=== PATIENT | female | born 1980 | race American Indian/Alaskan Native ===

== ENCOUNTER 2019-10-28 00:27 | Outpatient (CLI) | payer BC, MEDICAID, SELFPAY | END 2019-10-28 00:28 | disposition home or self-care (01) | LOC: ANHCOVIDDT 00:27 | PROVIDERS: Visit Provider Obstetrics & Gynecology | DX: Z01.818 Encounter for other preprocedural examination (principal); Z11.59 Encounter for screening for other viral diseases | CPT/HCPCS: 87635; C9803; U0003 ==

== ENCOUNTER 2019-10-28 09:00 | Outpatient (CLI) | payer OTHER, MEDICAID, SELFPAY | END 2019-10-28 09:01 | disposition home or self-care (01) | PROVIDERS: Visit Provider Obstetrics & Gynecology | DX: Z01.818 Encounter for other preprocedural examination (principal); N94.6 Dysmenorrhea, unspecified | CPT/HCPCS: 36415; 86850; 86900; 86901; 87635; C9803; U0003 ==

== ENCOUNTER 2019-11-01 15:17 | Observation (INO) | payer BC, MEDICAID, SELFPAY ==
[2019-10-27 07:46] VITALS: BMI 28.1
[2019-10-31] VITALS (12 sets, daily range): BP systolic 107–138; BP diastolic 63–96; PULSE 52–93; RESP 10–20; TEMP 36.1–37.8; O2SAT 95–100
[2019-10-31] MEDS: LACTATED RINGERS 1,000 ML 30 ML IV CONT ×3 (06:45→10:20)
--- NOTE | 2019-10-31 06:46 | P.PNAN_ITS ---
Anes - Initial Pre Proc Eval Procedure: Operation Date: 10/31/19 07:30 Proposed Procedures p Total Laparoscopic Hysterectomy, Bilateral Salpingo-Oophorectomy - Eve Davidson MD Date/Time: 10/31/19 06:46 Surgeon: Eve Davidson MD Pre Op Diagnosis: Dysmenorrhea/ Leiomyoma Of The Uterus Patient Data Age: 39 Gender: F Height: 5 ft 1 in Weight: 67.59 kg Allergies Allergy/AdvReac Type Severity Reaction Status Date / Time amoxicillin Allergy THROAT Verified 10/27/19 07:47 SWELLING Sulfa (Sulfonamide Allergy TONGUE Verified 10/27/19 07:47 Antibiotics) SWELLING Home Medications Medication Instructions Recorded Confirmed Type No Home Medications 10/27/19 10/27/19 History Patient hx anesthesia problems: none Family hx anesthesia problems: none [facility] Past Medical History Medical History Anxiety Overweight Smoker Surgical History Surgical History (Updated 10/31/19 @ 06:50 by Terrence Harrington MD) History of ankle surgery History of section Anes - Eval Final PreProcedure Day of Procedure 10/31/19 06:46 Patient weight: overweight Heart: regular rate and rhythm Lungs: clear to auscultation Airway: Mallampati scale class II and special considerations poor dentition Neurological: alert and oriented Last oral intake: >/= 8 hours ASA classification: II Emergent: no Anesthetic plan: proceed Anesthesia type and monitoring: general ETT and standard monitoring Informed Consent: The patient's anesthetic plan and its attendant risks and benefits were discussed with the patient/family/POA. Questions were solicited and answers provided to the satisfaction of the patient/family/POA.
--- NOTE | 2019-10-31 07:22 | WPDHPUPDATE1 ---
History and Physical Update Update Date/Time: 10/31/19 07:22 History and Physical has been reviewed, including an updated exam of the patient. There are NO changes in the patient's condition. Risks, benefits, and alternatives have been discussed and questions answered. Patient agrees to proceed with procedure.
[2019-10-31] MEDS: IBUPROFEN IV 800 MG/200 ML 800 MG/200 ML BAG 400 MG IVPB (07:25)
[2019-10-31] MEDS: CLINDAMYCIN 900 MG/NS 50 ML 900 MG/50 ML PIGGYBACK 50 MG IVPB (08:29)
--- NOTE | 2019-10-31 09:50 | P.OP_ITS ---
Procedure Note - Detailed Date of procedure: 10/31/19 Pre-op diagnosis: Dysmenorrhea/ Leiomyoma Of The Uterus Severe menorrhagia, dysmenorrhea Post-op diagnosis: same Procedure performed: Total laparoscopic hysterectomy bilateral salpingo- oophorectomy Description of procedure: The patient was taken to the operating room. She was prepped and draped in the dorsal lithotomy position. A speculum was placed in the vagina. The cervix was grasped with a tenaculum. Stay sutures were placed at 3 and 9:00 a.m. of 0 Vicryl. The stay sutures were brought through the Mary up. The ALYSSA manipulator was placed in the vagina with a fixed Mary cup. The cup was then pushed up around the cervix. The sutures were tied to the handle of the ALYSSA manipulator. A 5 mm incision was made on the abdominal skin of the left upper quadrant using a scalpel. A 5 mm trocar was inserted into the intra-abdominal cavity under direct visualization the scope. Pneumoperitoneum was achieved. An 11 mm incision was made in the left lower quadrant of the abdomen with a scalpel. A 11 mm trocar was inserted into the intra-abdominal cavity under direct visualization the scope. A 5 mm periumbilical incision was made. A 5 mm scope was placed into the intra-abdominal cavity under direct visualization of the scope. The ureters were identified. The ureters were observed to be away from the infundibulopelvic ligaments. These infundibulopelvic ligaments were isolated, cauterized, and transected with LigaSure cautery. This was done in a bilateral fashion. The para ovarian tissue along the pelvic sidewall was cauterized and transected in a bilateral fashion using the ligature cautery. The round ligaments were cauterized and transected bilaterally with LigaSure cautery. The broad ligaments were cauterized and transected along the lateral aspects of the uterus down the level of the uterine arteries. A bladder flap was created using sharp and blunt dissection. The ureters were dissected out bilaterally down to the level of the uterine arteries. The could be visualized from the pelvic brim down the uterine arteries. Staying very close to the cervix the parametrium was cauterized transected in a stepwise fashion down to the level of the Mary cup. The Bladder flap was moved distally over the Mary cup using sharp and blunt dissection. The cup was visualized and a complete 360 degree papillary around the cervix. An incision was made with unipolar cautery down under the Mary cup creating a colpotomy incision all the way around the cervix. The uterus tubes and ovaries were taken out through the vagina. A pneumo occluder was placed in the vagina. The vagina was closed with 0 V lock suture in a running fashion. The ureters were identified again and found to be intact elevated and the uterine arteries. The pelvis was irrigated with a copious amount of antibiotic irrigation. The pneumoperitoneum was reduced. The trocars were removed. The skin was closed subcuticular 4 Monocryl covered with Dermabond. The pneumo occluder was removed from the vagina. The vagina was irrigated with Betadine. The patient tolerated the procedure well. She was taken to the recovery room in stable condition. Sponge lap and needle counts were correct x2. Anesthesia: GETA Surgeon: Eve Davidson MD Estimated blood loss (mL): 100 Drains: No Packing: No Pathology: yes Complications: No immediate complications Condition: stable Disposition: PACU Findings: Grossly normal-appearing uterus tubes and ovaries.
[2019-10-31] MEDS: KETOROLAC 30 MG/ML VIAL (*BKC) IV PUSH (11:12)
[2019-10-31] MEDS: IBUPROFEN 600 MG TABLET PO (17:06)
[2019-10-31] MEDS: SIMETHICONE 80 MG TAB.CHEW PO (20:58)
--- NOTE | ~2019-11-01 | CT_ITS ---
EXAMINATION: CT abdomen pelvis wo con DATE: 11/01/2019 12:30 INDICATION: Severe abdominal pain and nausea, vomiting after surgery. Total hysterectomy. TECHNIQUE: Computed tomography (CT) of the abdomen and pelvis was performed without intravenous contr ast. Automated exposure control and iterative reconstruction technique were employed. Exam dose: 470 .20 mGy-cm total exam DLP. COMPARISON: None. FINDINGS: The lung bases are clear of infiltrate or consolidation. Normal heart size. No pericardial or pleural effusion. There is intraperitoneal free air as well as some subcutaneous emphysema of the anterior abdominal wa ll, likely postoperative. The liver, gallbladder, bile ducts, spleen, pancreas, pancreatic duct, and adrenal glands and kidneys are unremarkable on this limited noncontrast examination, with the exception of approximately 1.3 cm right renal probable cyst. This is a limited noncontrast examination. Normal caliber of the abdominal aorta. No intraperitoneal or retroperitoneal or pelvic mass lesion or adenopathy or ascites. The urinary bladder appears unremarkable. Status post hysterectomy. Normal appendix. Diverticulosis of the colon; no CT evidence of diverticulitis. There is a prominent of fecal material in the colon. IMPRESSION: Probable postoperative pneumoperitoneum Probable mild postoperative adynamic ileus Diverticulosis of the colon; no CT evidence of diverticulitis; prominent amount of fecal material in the colon Reviewed, dictated and finalized at [facility]. Reviewed, dictated and finalized at [facility].
[2019-11-01] MEDS: IBUPROFEN 600 MG TABLET PO ×3 (00:17→19:34)
[2019-11-01 00:30] VITALS: BP 112/69; PULSE 77; RESP 18; TEMP 37.5
[2019-11-01] MEDS: SIMETHICONE 80 MG TAB.CHEW PO ×4 (04:24→19:34)
[2019-11-01 04:25] VITALS: BP 128/82; PULSE 73; RESP 17; TEMP 37.2
[2019-11-01] MEDS: ONDANSETRON HCL ODT 4 MG TABLET (08:00)
[2019-11-01 08:50] VITALS: BP 135/90; PULSE 68; RESP 16; TEMP 37.2; O2SAT 100
--- NOTE | 2019-11-01 09:02 | WPDANESPN ---
Anes - Prog Note Post-Op Date/Time: 11/01/19 09:02 Cardiovascular status: normal Respiratory status: normal Airway patency: baseline Mental status: baseline Post-Op hydration status: normal Vital Signs: Last Vital Signs Temp 37.2 C 11/01/19 04:25 Pulse 73 11/01/19 04:25 Resp 17 11/01/19 04:25 BP 128/82 11/01/19 04:25 Pulse Ox 100 10/31/19 14:00 I/O: Intake & Output 10/31/19 11/01/19 11/01/19 23:59 07:59 15:59 Intake Total 1000 Output Total 1500 Balance -500 Post-procedural complaints: none Patient Feedback: Patient satisfied with anesthetic care.
[2019-11-01] MEDS: TRAMADOL HCL 50 MG TABLET (09:28)
[2019-11-01 09:59] LABS: Hematocrit 34.7 % (37.0-47.0); Hemoglobin 11.5 g/dL (12.0-15.0); Mean Corpuscular HGB Conc 33.1 g/dl (32-36); Mean Corpuscular Hemoglobin 30.4 pg (26-34); Mean Corpuscular Volume 91.8 fl (80-100); Mean Platelet Volume 9.7 fl (7.4-10.4); Platelet Count Result 321 k/mm3 (150-375); Red Blood Count 3.78 M/mm3 (4.2-5.4); Red Cell Distribution Width 15.4 % (11.5-14.5); White Blood Count 13.5 K/mm3 (4.5-10.0)
[2019-11-01] MEDS: MORPHINE SULFATE 10 MG/ML AMP (12:11)
[2019-11-01 12:30] VITALS: BP 117/71; PULSE 72; RESP 14; TEMP 36.9
--- NOTE | 2019-11-01 14:16 | PM.GYNPNOP ---
LENS GENERATOR - A/P Postoperative Procedures: Procedures Operation Date: 10/31/19 07:30 Actual Procedures Side Surgeon p Total Laparoscopic Hysterectomy, Bilateral Salpingo-Oophorectomy Eve Davidson MD Postoperative day: 1 Postoperative status: post-op ileus, marginal pain control and other (nausea and vomiting - poor pain control - normal post op CT. - possible ileus, abd. mucle pain from vomiting) Postoperative plan: see orders Time Spent With Patient Time: Total time spent is greater than 50% in coordination of care (as documented) at patient's floor/unit and/or counseling patient: Time with patient: 15 - 25 minutes LENS GENERATOR- PN:Subj Post-Op Subjective Date/time seen: 11/01/19 14:16 The patient reports multiple episodes of nausea and vomiting. She reports abdominal pain in the right upper quadrant. She denies fever or chills. Subjective: patient is tolerating oral intake and pain not well controlled Exam Const: General: cooperative, healthy appearing, comfortable and no acute distress Resp: Auscultation: no crackles, no rales, no rhonchi and no wheezes Cardio: Rhythm: regular rhythm Heart sounds: no click and no murmurs GI: Inspection: non-distended Auscultation: normal bowel sounds Other: Incisions - CDI Extrem: General: normal to inspection, no pedal edema and no calf tenderness LENS GENERATOR - PN: Obj Data Vital Signs Vital Signs: Vital Signs - 24 hr 10/31/19 19:24 11/01/19 00:30 11/01/19 04:25 Temperature 100.1 F H 99.5 F 99.0 F Pulse Rate 70 77 73 Respiratory Rate 18 18 17 Blood Pressure 119/83 112/69 128/82 Pulse Oximetry 11/01/19 08:50 Temperature 98.9 F Pulse Rate 68 Respiratory Rate 16 Blood Pressure 135/90 Pulse Oximetry 100 Intake/Output Intake/Output: Intake & Output 10/29/19 10/30/19 10/31/19 11/01/19 23:59 23:59 23:59 23:59 Intake Total 2607 1000 Output Total 450 1500 Balance 2157 -500 Meds/Results Medications: Active Medications Generic Name Dose Route Start Last Admin Trade Name Freq PRN Reason Stop Dose Admin Hydrocodone Bitart/Acetaminophen 1 tab 10/31/19 10:48 [place] 5-325 Mg PO Q3H PRN Pain Rated 5 or Less Hydrocodone Bitart/Acetaminophen 1 tab 10/31/19 10:48 11/01/19 04:24 [place] 10-325 Mg PO 1 tab Q3H PRN Administration Pain Rated 6 or Greater Ibuprofen 600 mg 10/31/19 10:48 11/01/19 08:28 Motrin PO 600 mg Q6H PRN Administration Cramping Ketorolac Tromethamine 30 mg 10/31/19 10:48 10/31/19 11:12 Toradol Inj IV PUSH 11/05/19 10:49 30 mg Q6H PRN Administration Pain Rated 4-6 Naloxone HCl 0.1 mg 10/31/19 10:48 Narcan IV PUSH Q2M PRN Respiratory rate less than 10 Ondansetron HCl 4 mg 11/01/19 08:00 Zofran Odt PO Q6H PRN Nausea And Vomiting Promethazine HCl 25 mg 11/01/19 12:04 Phenergan Tab PO Q4H PRN Nausea And Vomiting Simethicone 80 mg 10/31/19 14:26 11/01/19 08:27 Mylicon PO 80 mg QID PRN Administration Gas Discomfort Tramadol HCl 50 mg 11/01/19 09:30 Ultram PO Q4H PRN Abdominal Cramping Radiology Results: ITS Impressions Abdomen/Pelvis CT 11/01/19 12:33 IMPRESSION: Probable postoperative pneumoperitoneum Probable mild postoperative adynamic ileus Diverticulosis of the colon; no CT evidence of diverticulitis; prominent amount of fecal material in the colon Labs CBC & Chem 7: 11/01/19 09:49 Labs: Laboratory Results - last 24 hr 11/01/19 09:49 WBC 13.5 H RBC 3.78 L Hgb 11.5 L Hct 34.7 L MCV 91.8 MCH 30.4 MCHC 33.1 RDW 15.4 H Plt Count 321 MPV 9.7
[2019-11-01] MEDS: DOCUSATE SODIUM 100 MG CAPSULE PO (15:47)
[2019-11-01] MEDS: TRAMADOL HCL 50 MG TABLET PO ×2 (15:47→21:28)
--- NOTE | 2019-11-01 17:11 | PC.NURSE ---
0915 Dr Davidson in room, report given of nausea/vomiting, pain level in upper right quadrant. Orders received. 1045 Pt wishes to try a shower for relaxing muscles. Pt continues to have nausea and vomiting. 1200 Dr. Davidson notified of continuing nausea/vomiting. Morphine given IM. Zofran ODT repeated 1215 Taken to radiology for CT via wheelchair [address], states pain is completely gone and is no longer nauseous. 1300 Napping. 1547 Given Ultram for pain level of three, relaxed appearance. States she's hungry.
[2019-11-01 19:38] VITALS: BP 131/70; PULSE 65; RESP 17; TEMP 36.7
[2019-11-02] MEDS: IBUPROFEN 600 MG TABLET PO ×2 (03:54→10:46)
[2019-11-02] MEDS: ONDANSETRON HCL ODT 4 MG TABLET PO (07:11)
--- NOTE | 2019-11-02 07:59 | PM.GYNPNOP ---
OPERATIONS SUPERVISOR 2ND SHIFT - A/P Postoperative Procedures: Procedures Operation Date: 10/31/19 07:30 Actual Procedures Side Surgeon p Total Laparoscopic Hysterectomy, Bilateral Salpingo-Oophorectomy Eve Davidson MD Patient has a historically unique response to pain. Reports previous vomiting with abdominal pain. Vomiting improved. To trial Xanax. If improved to D/C. Patient has significant anxiety at baseline. Normal CT yesterday. Postoperative day: 2 Postoperative status: doing well Postoperative plan: see orders Time Spent With Patient Time: Total time spent is greater than 50% in coordination of care (as documented) at patient's floor/unit and/or counseling patient: Time with patient: 15 - 25 minutes OPERATIONS SUPERVISOR 2ND SHIFT- PN:Subj Post-Op Subjective Date/time seen: 11/02/19 07:59 Subjective: patient reports feeling better, patient has no complaints and pain is well controlled Exam Const: General: healthy appearing, comfortable and no acute distress Resp: Auscultation: clear to auscultation bilaterally, no rales, no rhonchi and no wheezes Cardio: Rate: regular rate Heart sounds: no click, no murmurs and no rubs GI: Inspection: non-distended Auscultation: normal bowel sounds Extrem: General: normal to inspection, no pedal edema and no calf tenderness OPERATIONS SUPERVISOR 2ND SHIFT - PN: Obj Data Vital Signs Vital Signs: Vital Signs - 24 hr 11/01/19 08:50 11/01/19 12:30 11/01/19 19:38 Temperature 98.9 F 98.4 F 98.1 F Pulse Rate 68 72 65 Respiratory Rate 16 14 17 Blood Pressure 135/90 117/71 131/70 Pulse Oximetry 100 Intake/Output Intake/Output: Intake & Output 10/30/19 10/31/19 11/01/19 11/02/19 23:59 23:59 23:59 23:59 Intake Total 2607 1000 Output Total 450 1500 Balance 2157 -500 Meds/Results Medications: Active Medications Generic Name Dose Route Start Last Admin Trade Name Freq PRN Reason Stop Dose Admin Hydrocodone Bitart/Acetaminophen 1 tab 10/31/19 10:48 [place] 5-325 Mg PO Q3H PRN Pain Rated 5 or Less Hydrocodone Bitart/Acetaminophen 1 tab 10/31/19 10:48 11/01/19 04:24 [place] 10-325 Mg PO 1 tab Q3H PRN Administration Pain Rated 6 or Greater Alprazolam 0.5 mg 11/02/19 07:49 Xanax PO TID PRN Anxiety Docusate Sodium 100 mg 11/01/19 21:00 11/01/19 15:47 Colace Capsule PO 100 mg Q12HR CHEPE Administration Ibuprofen 600 mg 10/31/19 10:48 11/02/19 03:54 Motrin PO 600 mg Q6H PRN Administration Cramping Ketorolac Tromethamine 30 mg 10/31/19 10:48 10/31/19 11:12 Toradol Inj IV PUSH 11/05/19 10:49 30 mg Q6H PRN Administration Pain Rated 4-6 Naloxone HCl 0.1 mg 10/31/19 10:48 Narcan IV PUSH Q2M PRN Respiratory rate less than 10 Ondansetron HCl 4 mg 11/01/19 08:00 11/02/19 07:11 Zofran Odt PO 4 mg Q6H PRN Administration Nausea And Vomiting Promethazine HCl 25 mg 11/01/19 12:04 Phenergan Tab PO Q4H PRN Nausea And Vomiting Simethicone 80 mg 11/01/19 18:45 11/01/19 19:34 Mylicon PO 80 mg Q2HR PRN Administration Gas Discomfort Tramadol HCl 50 mg 11/01/19 09:30 11/01/19 21:28 Ultram PO 50 mg Q4H PRN Administration Abdominal Cramping Radiology Results: ITS Impressions Abdomen/Pelvis CT 11/01/19 12:33 IMPRESSION: Probable postoperative pneumoperitoneum Probable mild postoperative adynamic ileus Diverticulosis of the colon; no CT evidence of diverticulitis; prominent amount of fecal material in the colon Labs CBC & Chem 7: 11/01/19 09:49 Labs: Laboratory Results - last 24 hr 11/01/19 09:49 WBC 13.5 H RBC 3.78 L Hgb 11.5 L Hct 34.7 L MCV 91.8 MCH 30.4 MCHC 33.1 RDW 15.4 H Plt Count 321 MPV 9.7
--- NOTE | 2019-11-02 08:03 | PM.DS ---
DS: Admitting Diagnosis Admitting Diagnosis Admitting Diagnosis: Menorrhagia, dysmenorrhea DS: Discharge Diagnosis Discharge Diagnosis (1) Menorrhagia: Code(s): N92.0 - Excessive and frequent menstruation with regular cycle Status: Acute (2) Dysmenorrhea: Code(s): N94.6 - Dysmenorrhea, unspecified Status: Acute DS: Summary Hospital Course Reason for hospitalization: TLH Status at Discharge Functional status at discharge: independent ambulation Overall status at discharge: patient is progressing back to baseline Time Spent with Patient Time attestation: Total time spent providing and/or coordinating discharge services: DS: Data Data Completed and Pending Completed studies during hospitalization: Pending at discharge 10/31/19 09:21 Surgical [PTH] Routine Labs on day of discharge: Labs from last 24 hours 11/01/19 09:49 WBC 13.5 H RBC 3.78 L Hgb 11.5 L Hct 34.7 L MCV 91.8 MCH 30.4 MCHC 33.1 RDW 15.4 H Plt Count 321 MPV 9.7 Discharge Plan Discharge Attending physician on discharge: Eve Davidson Discharging Clinician: Eve Davidson Patient Disposition: Home, Self-Care Activity: pelvic rest Diet: regular Patient Instructions: Hysterectomy (DC) Follow-up/Referrals: Eve Davidson MD [Physician] - Discharge Medications: New hydrocodone-acetaminophen 5-325 mg Tablet 1 tab PO Q3H PRN (Reason: Pain Rated 5 Or Less) Qty: 25 RF: 0 alprazolam 0.5 mg Tablet 0.5 mg PO TID PRN (Reason: Anxiety) Qty: 20 RF: 0 ondansetron 4 mg Tablet,Disintegrating 4 mg PO Q6H PRN (Reason: Nausea And Vomiting) Qty: 20 RF: 0 No Action No Home Medications RF: 0 Date of admission: 11/01/19 15:17 Primary Care Provider: UNKNOWN,DOCTOR Admitting Provider: Eve Davidson Attending physician on admission: Eve Davidson
[2019-11-02] MEDS: DOCUSATE SODIUM 100 MG CAPSULE PO (08:04)
[2019-11-02] MEDS: TRAMADOL HCL 50 MG TABLET PO (08:11)
[2019-11-02] MEDS: ALPRAZOLAM 0.5 MG TABLET PO (08:12)
[2019-11-02 08:25] VITALS: BP 147/91; PULSE 62; RESP 18; TEMP 37.5; O2SAT 100
== END 2019-11-02 12:38 | disposition home or self-care (01) ==
LOC: ANHSURGERY 15:19 → ANHOB2 15:19
PROVIDERS: Admitting Provider Obstetrics & Gynecology; Visit Provider Obstetrics & Gynecology
PROC: 0UT9FZZ Resection of Uterus, Via Natural or Artificial Opening With Percutaneous Endoscopic Assistance (ICD-10-PCS; CPT 58552; principal; 2019-10-31 07:30)
DX: N80.0 Endometriosis of uterus (principal); N92.0 Excessive and frequent menstruation with regular cycle; N94.6 Dysmenorrhea, unspecified; F17.210 Nicotine dependence, cigarettes, uncomplicated; K56.7 Ileus, unspecified; Z88.1 Allergy status to other antibiotic agents; Z88.2 Allergy status to sulfonamides
CPT/HCPCS: 58552; 36415; 74176; 85027; 88307; 99199; A9270; G0378; J1100; J1170; J1200; J1580; J1741; J1885; J2001; J2250; J2270; J2405; J2704; J2710; J3010; J7030; J7120

== ENCOUNTER 2019-11-28 13:04 | Emergency (ER) | payer OTHER, MEDICAID, SELFPAY ==
--- NOTE | ~2019-11-28 | CT_ITS ---
EXAMINATION: CT abdomen pelvis w con INDICATION: Lower abdominal pain TECHNIQUE: Computed tomographic images of the abdomen and pelvis were obtained after the administrati on of 100 cc of Omnipaque 350 intravenous contrast. The dose-length product (DLP) was 313.95 mGy-cm. Automated exposure control and iterative reconstruction technique were employed. COMPARISON: 11/01/2019 FINDINGS: Minimal dependent atelectasis is present in the lung bases. The heart size is normal. There is a small sliding hiatal hernia. The liver, spleen, pancreas, gallbladder, and adrenal glands are n ormal. There is a 2.1 cm cyst of the right kidney. The left kidney is unremarkable. No pathologically enlarged abdominal or pelvic lymph nodes are identified. There is no free intraperitoneal gas or gilberto dence of bowel obstruction. The previously described postoperative pneumoperitoneum has resolved. The re are changes of hysterectomy. There is a tiny fat-containing umbilical hernia. IMPRESSION: 1. No CT correlate for the patient's symptoms. Reviewed, dictated and finalized at [facility].
[2019-11-28 13:06] VITALS: BP 118/87; PULSE 84; RESP 18; TEMP 36.6; O2SAT 100
[2019-11-28 13:36] LABS: Basophils Absolute Auto 0.1 K/mm3 (0.0-0.1); Basophils Percent Auto 0.6 % (0.2-1.2); Eosinophils Absolute Auto 0.1 K/mm3 (0-0.3); Hematocrit 38.8 % (37.0-47.0); Hemoglobin 12.8 g/dL (12.0-15.0); Immature Granulocyte Absolute 0.03 K/mm3 (0.00-0.031); Immature Granulocyte Percent A 0.3 % (0-0.5); Lymphocytes Absolute Auto 1.75 K/mm3 (0.9-3.2); Lymphocytes Percent Auto 16.2 % (18.3-44.2); Mean Corpuscular Hemoglobin 29.7 pg (26-34); Mean Platelet Volume 9.6 fl (7.4-10.4); Monocytes Absolute Auto 0.6 K/mm3 (0.1-0.6); Monocytes Percent Auto 5.2 % (2.6-8.5); Neutrophils Absolute Auto 8.3 K/mm3 (1.3-6.7); Neutrophils Percent Auto 76.7 % (45.5-73.1); Platelet Count Result 369 k/mm3 (150-375); Red Blood Count 4.31 M/mm3 (4.2-5.4); Red Cell Distribution Width 14.6 % (11.5-14.5); White Blood Count 10.8 K/mm3 (4.5-10.0)
[2019-11-28 13:40] LABS: Add Urine Microscopic? YES; Appearance Urine Clear (Clear); Bilirubin Urine Negative (Negative); Blood Urine Negative (Negative); Color Urine Yellow (Yellow); Glucose Urine UA Negative (Negative); Ketones Urine Negative (Negative); Leukocyte Esterase Ur Negative LEU/UL (Negative); Mucus Urine Rare /lpf; Nitrate Urine Negative (Negative); Protein Urine Negative (Negative); RBC Urine 0-2 /hpf (0-2); Specific Grav Ur 1.015 (1.001-1.035); Squamous Epithelial Cell Urine Occasional /hpf (Few); Urobilinogen Urine Negative mg/dL (<2.0); WBC Urine 0-3 /hpf
[2019-11-28 13:46] LABS: Alanine Aminotransferase 17 U/L (4-35); Albumin Level 4.2 g/dL (3.5-5.1); Alkaline Phosphatase 91 U/L (38-126); Aspartate Amino Transferase 26 U/L (14-36); Bilirubin,Total 0.2 mg/dL (0.2-1.3); Blood Urea Nitrogen 9 mg/dL (7-17); Calcium 9.3 mg/dL (8.4-10.2); Carbon Dioxide 27 mmol/L (22-30); Chloride 108 mmol/L (98-107); Estimated CRCL calculation 81 ml/min; Estimated Glomerular Filt Rate > 60; Glucose 96 mg/dL (65-105); Lipase 203 U/L (23-300); Potassium 4.1 mmol/L (3.4-5.0); Sodium 140 mmol/L (137-145)
--- NOTE | 2019-11-28 14:12 | ED.GENADULT ---
HPI - General Adult General Chief complaint: Recheck/Abnormal Lab/Rx Stated complaint: post op pain Time Seen by Provider: 11/28/19 13:59 Source: patient Mode of arrival: ambulatory Limitations: no limitations History of Present Illness HPI narrative: This patient is a 39 year old female who presents for evaluation of abdominal pain s/p hysterectomy. She had a hysterectomy performed by Dr. Davidson 10/31/19 for dysmenorrha. She states while she was in hospital postoperatively she developed left lower abdominal pain and left back pain. She states she thought it was normal after her procedures so she did not say anything about the pain. She states hours after discharge from the hospital last month she went to ER at [facility] for this pain with nausea and vomiting. She was told pain is likely normal. She states she has continued to have pain and it is getting worse. She described pulling pain from her umbilicus to her clitorus. She also reports right upper abdominal pain. For the past 5 days she reports constant nausea, vomiting and diarrhea. She had postoperative appointment but she states she did not go the the appointment. Related Data Allergies Allergy/AdvReac Type Severity Reaction Status Date / Time amoxicillin Allergy THROAT Verified 11/28/19 13:09 SWELLING Sulfa (Sulfonamide Allergy TONGUE Verified 11/28/19 13:09 Antibiotics) SWELLING Review of Systems Review of Systems: All systems reviewed & are unremarkable except as noted in HPI and below Constitutional: Constitutional: Denies chills and Reports fever(s) Gastrointestinal: Gastrointestinal: Reports abdominal pain, Reports diarrhea, Reports nausea and Reports vomiting Genitourinary: Genitourinary: Denies hematuria, Denies nocturia, Reports pelvic pain and Denies flank pain Musculoskeletal: Musculoskeletal: Reports back pain PMFSH Past Medical History Medical History Anxiety Overweight Smoker Surgical History Surgical History (Updated 11/28/19 @ 14:12 by Paula Mock MD) H/O: hysterectomy History of ankle surgery History of section Social History Social History Gender identity (if verbalized by the patient): Female Exam Narrative: Exam Narrative: GENERAL: Well-appearing, well-nourished, and in no acute distress. HEAD: Normocephalic, atraumatic EYES: PERRLA and EOMI, conjunctiva clear without discharge THROAT:Mucous membranes moist, Oropharynx normal without erythema, exudate, peritonsillar swelling or fluctuance NECK: Supple, without lymphadenopathy or mass RESPIRATORY: No respiratory distress, Airway patent, Respirations non-labored, Clear to auscultation without rales, rhonchi or wheeze HEART: Regular rate and rhythm. No murmur heard. Normal peripheral pulses. EXTREMITIES: No edema, normal strength with full range of motion. SKIN: Warm, dry, normal color without rash NEURO: Alert and oriented x3. CN 2-12 grossly intact. No focal deficits. PSYCH: Normal mood and affect. GI: GI Palp: Yes Soft to palpation, Yes Tenderness to palpation present (GI) (RUQ, LLQ), No Guarding due to palpation present (GI), No Rigid due to palpation and No Hernia present Course Consultations Consultation #1: I spoke with Dr. Davidson about patient's complaint, labs and CT. He states patient just needs to followup. Ct did not find anything to explain symptoms. Date: 11/28/19 Time: 15:25 Vital Signs Vital signs: Vital Signs Temperature 97.9 F 11/28/19 13:06 Pulse Rate 84 11/28/19 13:06 Respiratory Rate 18 11/28/19 13:06 Blood Pressure 118/87 11/28/19 13:06 Pulse Oximetry 100 11/28/19 13:06 Temperature 97.9 F 11/28/19 13:06 Pulse Rate 67 11/28/19 16:15 Respiratory Rate 12 11/28/19 16:15 Blood Pressure 120/68 11/28/19 16:15 Pulse Oximetry 99 11/28/19 16:15 Medical Decision Making Vital Signs Vital Signs: Vital Signs Temp
[2019-11-28] MEDS: HYDROMORPHONE HCL 1 MG/ML INJ IV PUSH (14:51)
[2019-11-28] MEDS: ONDANSETRON INJ 4 MG/2 ML VIAL (14:51)
[2019-11-28] MEDS: LACTATED RINGERS 1,000 ML 999 ML IV CONT (14:52)
[2019-11-28 15:00] VITALS: BP 116/74; PULSE 80; RESP 14; O2SAT 99
[2019-11-28 16:15] VITALS: BP 120/68; PULSE 67; RESP 12; O2SAT 99
== END 2019-11-28 16:18 | disposition home or self-care (01) ==
PROVIDERS: Emergency Provider General Practice
DX: R11.2 Nausea with vomiting, unspecified (principal); G89.18 Other acute postprocedural pain; F41.9 Anxiety disorder, unspecified
CPT/HCPCS: 36415; 74177; 80053; 81001; 83690; 85025; 96361; 96374; 96375; 99284; J1170; J2405; J7120; Q9967